=== PATIENT | male | born 1995 | race Caucasian/White ===

== ENCOUNTER 2018-12-01 23:32 | Emergency (ER) | payer SELFPAY ==
[~2018-12-01 23:32] MED LIST: AZIT250T PO; BENZ100C18 PO; DIVA500T PO; SULF1TAB35 PO
--- NOTE | 2018-12-02 00:03 | NUR ---
PT NAME CALLED. DID NOT PRESENT TO STAFF, NO ONE PRESENT IN WAITING ROOM.
== END 2018-12-02 00:03 | disposition left against medical advice (07) ==
LOC: EDUNIT# 23:32 → ER 23:36
DX: R45.851 Suicidal ideations (principal); R05 Cough